=== PATIENT | female | born 1960 | race Caucasian/White ===

== ENCOUNTER 2017-05-20 09:05 | Emergency (ER) | payer MEDICARE, MEDICAID ==
[~2017-05-20] VITALS: Ht 170.2 cm; Wt 72.7 kg
[~2017-05-20 09:05] MED LIST: CIPRO500 M1 PO; FLEXERIL10 MG PO; LORAZEPAM0.5 MG PO; MAXALT-MLT5 MG PO; METRONIDAZOLE500 M1 PO; NEIGHBOR P PO; NEURONTIN800 M1 PO; NORCO 325 MG-51 TAB PO; RISPERDAL2 MG PO; ULTRAM50 MG PO
[2017-05-20] MEDS ORDERED: ROBAXIN-750750 MG PO (09:36)
[2017-05-20] MEDS ORDERED: TESSALON PERLE100 M1 PO (09:40)
[2017-05-20] MEDS ORDERED: ZITHROMAX 250M250 MG PO (09:40)
[2017-05-20] MEDS ORDERED: TUSSIONEX PENN115 ML PO (09:40)
[2017-05-20 10:34] VITALS: BP 164/94
== END 2017-05-20 10:33 | disposition home or self-care (01) ==
LOC: ED 09:05
DX: J44.0 Chronic obstructive pulmonary disease with (acute) lower respiratory infection (principal); J20.9 Acute bronchitis, unspecified; F17.200 Nicotine dependence, unspecified, uncomplicated; K08.89 Other specified disorders of teeth and supporting structures; F31.9 Bipolar disorder, unspecified; F98.8 Other specified behavioral and emotional disorders with onset usually occurring in childhood and adolescence; F44.81 Dissociative identity disorder; F41.9 Anxiety disorder, unspecified

== ENCOUNTER 2018-01-27 09:30 | Outpatient (RCR) | payer MEDICARE, MEDICAID ==
[~2018-01-27 09:30] MED LIST changes: +ATIVAN1 M1 PO; -LORAZEPAM0.5 MG PO; +ROBAXIN-750750 MG PO; +TESSALON PERLE100 M1 PO; +TUSSIONEX PENN115 ML PO; +ZITHROMAX 250M250 MG PO
== END 2018-01-27 10:00 | disposition home or self-care (01) ==
LOC: PT 09:30
DX: M48.061 Spinal stenosis, lumbar region without neurogenic claudication (principal); M43.16 Spondylolisthesis, lumbar region
CPT/HCPCS: G8978-GP; G8979-GP

== ENCOUNTER 2018-02-07 18:35 | Emergency (ER) | payer MEDICARE, MEDICAID ==
[2018-02-07] MEDS ORDERED: GOOD NEIGHBOR200 M3 PO (18:48)
[2018-02-07 19:46] LABS: EOS # 0.2 (0.04-0.40); EOS % 2.4 % (1.0-5.0); HEMATOCRIT 43.1 % (37.0-47.0); HEMOGLOBIN 14.2 g/dL (12.5-16.0); LYMPH# 2.6 (1.50-4.00); MEAN CELL VOLUME 89 fl (78-100); MEAN CORPUSCULAR HEMOGLOBIN 30 pg (27-31); MEAN CORPUSCULAR HGB CONC 33 g/dL (33-37); MEAN PLATELET VOLUME 9.4 fl (7.4-10.4); MONO # 0.8 (0.20-0.80); NEU # 4.5 (1.40-6.50); PLATELET COUNT 308 K/mm3 (130-400); RED BLOOD COUNT 4.82 M/mm3 (4.10-5.30); RED CELL DISTRIBUTION WIDTH 13.4 % (11.5-14.5)
[2018-02-07 19:53] LABS: BUN/CREATININE RATIO 24.1 (6.0-26.0); CALCIUM 8.7 mg/dL (8.4-10.2); POTASSIUM 3.2 mmol/L (3.6-5.0)
[2018-02-07 21:35] VITALS: BP 115/80
== END 2018-02-07 21:35 | disposition home or self-care (01) ==
LOC: ED 18:35
PROVIDERS: Nurse Practitioner
DX: M54.6 Pain in thoracic spine (principal); X50.0XXA Overexertion from strenuous movement or load, initial encounter; M41.9 Scoliosis, unspecified; F17.200 Nicotine dependence, unspecified, uncomplicated
CPT/HCPCS: J1885; J3010; J7040

== ENCOUNTER 2018-09-23 10:23 | Emergency (ER) | payer MEDICARE, MEDICAID ==
[~2018-09-23] VITALS: Ht 170.2 cm; Wt 81.8 kg
[~2018-09-23 10:23] MED LIST changes: +GOOD NEIGHBOR200 M3 PO
[2018-09-23 10:29] VITALS: BP 118/79
[2018-09-23] MEDS ORDERED: MELOXICAM15 MG PO (10:33)
== END 2018-09-23 11:21 | disposition home or self-care (01) ==
LOC: ED 10:23
DX: M54.5 Low back pain (principal); M41.9 Scoliosis, unspecified; F17.210 Nicotine dependence, cigarettes, uncomplicated; Z90.710 Acquired absence of both cervix and uterus; Z90.49 Acquired absence of other specified parts of digestive tract
CPT/HCPCS: J1885; J2360

== ENCOUNTER 2019-05-29 12:50 | Emergency (ER) | payer MEDICARE, MEDICAID ==
[~2019-05-29 12:50] MED LIST changes: +ATIVAN0.5 MG PO; -ATIVAN1 M1 PO; +MELOXICAM15 MG PO; +NEURONTIN600 M1 PO; -NEURONTIN800 M1 PO; +RISPERDAL 2M2 MG/TAB PO; -RISPERDAL2 MG PO
[2019-05-29] MEDS ORDERED: CALTRATE 600 +1 EACH PO (13:07)
[2019-05-29] MEDS ORDERED: NORCO 325 MG-51 TA1 PO (14:36)
[2019-05-29 14:46] VITALS: BP 114/74
== END 2019-05-29 14:46 | disposition home or self-care (01) ==
LOC: ED 12:50
DX: M54.5 Low back pain (principal); F41.9 Anxiety disorder, unspecified; F31.9 Bipolar disorder, unspecified; F17.210 Nicotine dependence, cigarettes, uncomplicated; Z87.442 Personal history of urinary calculi; Z90.49 Acquired absence of other specified parts of digestive tract; Z90.710 Acquired absence of both cervix and uterus
CPT/HCPCS: J2270

== ENCOUNTER 2019-09-07 12:41 | Emergency (ER) | payer MEDICARE, MEDICAID ==
[~2019-09-07] VITALS: Ht 170.2 cm; Wt 65.9 kg
[~2019-09-07 12:41] MED LIST changes: +CALTRATE 600 +1 EACH PO; +NORCO 325 MG-51 TA1 PO
[2019-09-07] MEDS ORDERED: ULTRAM50 M1 PO (12:55)
[2019-09-07] MEDS ORDERED: KLONOPIN 1MG1 MG PO (12:55)
[2019-09-07] MEDS ORDERED: NORCO 325 MG-51 TA1 PO (13:31)
[2019-09-07 13:49] VITALS: BP 142/104
== END 2019-09-07 13:50 | disposition home or self-care (01) ==
LOC: ED 12:41
DX: M54.5 Low back pain (principal); Z98.890 Other specified postprocedural states

== ENCOUNTER 2020-07-25 09:58 | Emergency (ER) | payer MEDICARE, MEDICAID ==
[~2020-07-25] VITALS: Ht 167.6 cm; Wt 65.0 kg
[~2020-07-25 09:58] MED LIST changes: +KLONOPIN 1MG1 MG PO; +LORAZEPAM1 M1 PO; +REMERON15 MG PO; +ULTRAM50 M1 PO
[2020-07-25] MEDS ORDERED: TIZANIDINE2 MG PO (10:09)
[2020-07-25] MEDS ORDERED: KETOROLAC10 MG PO (11:30)
[2020-07-25] MEDS ORDERED: NORCO 10-325 T1 EACH PO (11:30)
[2020-07-25 11:36] VITALS: BP 124/89
== END 2020-07-25 11:39 | disposition home or self-care (01) ==
LOC: ED 09:58
DX: M54.42 Lumbago with sciatica, left side (principal); M54.41 Lumbago with sciatica, right side; G89.29 Other chronic pain; F41.9 Anxiety disorder, unspecified; Z23 Encounter for immunization; Z88.1 Allergy status to other antibiotic agents; Z88.8 Allergy status to other drugs, medicaments and biological substances; Z79.1 Long term (current) use of non-steroidal anti-inflammatories (NSAID); Z79.891 Long term (current) use of opiate analgesic; Z79.899 Other long term (current) drug therapy
CPT/HCPCS: J1170; J1885

== ENCOUNTER → 2020-08-28 | Outpatient (CLI) | payer MEDICARE, MEDICAID ==
[~2020-08-28] MED LIST changes: +KETOROLAC10 MG PO; +NORCO 10-325 T1 EACH PO; +TIZANIDINE2 MG PO
== END ==
LOC: LAB 09:17
DX: U07.1 COVID-19 (principal); R19.7 Diarrhea, unspecified

== ENCOUNTER 2020-09-13 12:04 | Emergency (ER) | payer MEDICARE, MEDICAID ==
[2020-09-13] MEDS ORDERED: LAMOTRIGINE25 M2 PO (12:25)
[2020-09-13] MEDS ORDERED: CEPHALEXIN500 M1 PO (12:50)
[2020-09-13] MEDS ORDERED: NORCO 325 MG-51 TA1 PO (12:50)
[2020-09-13 13:00] VITALS: BP 111/86
== END 2020-09-13 13:00 | disposition home or self-care (01) ==
LOC: ED 12:04
DX: T21.24XA Burn of second degree of lower back, initial encounter (principal); F31.9 Bipolar disorder, unspecified; G89.29 Other chronic pain; Z87.442 Personal history of urinary calculi; X16.XXXA Contact with hot heating appliances, radiators and pipes, initial encounter

== ENCOUNTER 2020-10-10 17:22 | Emergency (ER) | payer MEDICARE, MEDICAID ==
[~2020-10-10] VITALS: Ht 160 cm; Wt 65.9 kg
[~2020-10-10 17:22] MED LIST changes: +CEPHALEXIN500 M1 PO; +LAMOTRIGINE25 M2 PO
[2020-10-10 17:48] VITALS: BP 113/72
[2020-10-10 18:25] LABS: URINE APPEARANCE HAZY; URINE BILIRUBIN NEGATIVE (NEGATIVE); URINE BLOOD 250 ery/uL (NEGATIVE); URINE COLOR AMBER; URINE GLUCOSE NEGATIVE (NEGATIVE); URINE KETONE NEGATIVE (NEGATIVE); URINE NITRATE POSITIVE (NEGATIVE); URINE PROTEIN(semi-quant) 2+ mg/dL (NEGATIVE)
[2020-10-10 18:26] LABS: URINE LEUKOCYTE ESTERASE 2+ (NEGATIVE); URINE MUCUS PRESENT (NOT PRESENT); URINE UROBILINOGEN 12 mg/dL (NORMAL); URINE WBC >50 /hpf (0-3)
== END 2020-10-10 19:11 | disposition left against medical advice (07) ==
LOC: ED 17:22
PROVIDERS: Family Medicine
DX: R10.10 Upper abdominal pain, unspecified (principal); Z88.1 Allergy status to other antibiotic agents; Z88.8 Allergy status to other drugs, medicaments and biological substances

== ENCOUNTER 2020-11-02 13:13 | Emergency (ER) | payer MEDICARE, MEDICAID ==
[2020-11-02] MEDS ORDERED: TRAMADOL 50 MG TAB PO (14:17)
[2020-11-02 14:35] VITALS: BP 114/77
== END 2020-11-02 14:32 | disposition home or self-care (01) ==
LOC: ED 13:13
DX: M54.5 Low back pain (principal); G89.29 Other chronic pain; F31.9 Bipolar disorder, unspecified; F41.9 Anxiety disorder, unspecified; Z90.710 Acquired absence of both cervix and uterus; Z90.49 Acquired absence of other specified parts of digestive tract; Z88.1 Allergy status to other antibiotic agents; Z88.8 Allergy status to other drugs, medicaments and biological substances; Z79.891 Long term (current) use of opiate analgesic

== ENCOUNTER → 2021-06-05 | Outpatient (CLI) | payer MEDICARE, MEDICAID ==
[~2021-06-05] MED LIST changes: +TRAMADOL 50 MG TAB PO
== END ==
LOC: RAD 15:41
DX: R60.0 Localized edema (principal)

== ENCOUNTER 2021-11-09 13:57 | Emergency (ER) | payer MEDICARE, MEDICAID ==
[~2021-11-09] VITALS: Ht 160 cm; Wt 72.7 kg
[2021-11-09] MEDS ORDERED: BACLOFEN10 M1 PO (14:11)
[2021-11-09 16:42] VITALS: BP 110/61
== END 2021-11-09 17:13 | disposition home or self-care (01) ==
LOC: ED 13:57
DX: J39.9 Disease of upper respiratory tract, unspecified (principal); F17.200 Nicotine dependence, unspecified, uncomplicated; Z20.822 Contact with and (suspected) exposure to COVID-19

== ENCOUNTER 2023-01-02 11:19 | Emergency (ER) | payer MEDICARE, MEDICAID ==
[~2023-01-02] VITALS: Ht 160 cm; Wt 65.9 kg
[~2023-01-02 11:19] MED LIST changes: +BACLOFEN10 M1 PO
[2023-01-02 13:00] VITALS: BP 126/89
[2023-01-02 13:00] LABS: POTASSIUM 3.7 mmol/L (3.5-5.1)
[2023-01-02 13:01] LABS: CALCIUM 9.4 mg/dL (8.3-10.5)
== END 2023-01-02 13:00 | disposition home or self-care (01) ==
LOC: ED 11:19
PROVIDERS: Family Medicine
DX: M54.40 Lumbago with sciatica, unspecified side (principal); M41.56 Other secondary scoliosis, lumbar region; Z28.310 Unvaccinated for COVID-19
CPT/HCPCS: J2360

== ENCOUNTER 2024-08-02 16:32 | Emergency (ER) | payer MEDICARE, MEDICAID ==
[~2024-08-02] VITALS: Ht 160 cm; Wt 56.8 kg
[2024-08-02] MEDS ORDERED: ELIMITE60 G1 TP ×2 (17:20→17:24)
[2024-08-02] MEDS ORDERED: Cetirizine 10 MG TAB PO ONE (17:30)
[2024-08-02 17:36] VITALS: BP 115/86
== END 2024-08-02 17:38 | disposition home or self-care (01) ==
LOC: ED 16:32
DX: B86 Scabies (principal); L29.9 Pruritus, unspecified; F17.210 Nicotine dependence, cigarettes, uncomplicated; F17.290 Nicotine dependence, other tobacco product, uncomplicated